=== PATIENT | female | born 1985 | race Caucasian/White ===

== ENCOUNTER 2016-11-04 11:52 | Emergency (ER) | payer OTHER ==
[2016-11-04] MEDS ORDERED: KETOROLAC 30 MG/ML VIAL ONE (12:28)
[2016-11-04] MEDS ORDERED: ONDANSETRON 4 MG VIAL ONE (12:28)
[2016-11-04] MEDS ORDERED: SODIUM CHLORIDE 0.9% 1,000 ML ONE (12:29)
== END 2016-11-04 14:33 | disposition home or self-care (01) ==
LOC: ER 11:52
DX: R10.32 Left lower quadrant pain (principal); R10.9 Unspecified abdominal pain
CPT/HCPCS: 36415; 74176; 80053; 81003; 83690; 84703; 85025; 87491; 87591; 87800; 96361; 96374; 96375; 99284; J1885; J2405